=== PATIENT | male | born 1955 | race Caucasian/White ===

== ENCOUNTER 2017-10-08 16:40 | Emergency (ER) | payer OTHER ==
[2017-10-08 17:34] LABS: KETONE, URINE AUTO RFX NEGATIVE (NEGATIVE); LEUKOCYTE ESTERASE UR AUTO RFX NEGATIVE (NEGATIVE); NITRITE, URINE AUTO RFX NEGATIVE (NEGATIVE); RBC, URINE AUTO RFX 0 /HPF (0-3); SPECIFIC GRAVITY UR AUTO RFX 1.001 (1.002-1.035); SQUAM EPITHELIAL CELL UR AURFX 0 /HPF (0-6); WBC, URINE AUTO RFX 0 /HPF (0-3)
[2017-10-08] MEDS: ONDANSETRON 4MG/2ML VIAL (J2405) IV (20:55)
[2017-10-08] MEDS: KETOROLAC 30 MG/ML VIAL (J1885) IV (20:56)
[2017-10-08 21:04] LABS: BASO # 0.1 10^3/uL (0.0-0.2); BASO % 0.7 % (0.0-1.0); EOS # 0.2 10^3/uL (0.0-0.50); EOS % 1.7 % (0.0-3.0); HEMATOCRIT 45.7 % (42.0-52.0); HEMOGLOBIN 15.4 g/dl (14.0-18.0); IMMATURE GRANULOCYTE % 0.4 % (0-0); LYMPH # 2.3 10^3/uL (1.5-4.5); LYMPH % 25.4 % (24.0-44.0); MEAN CORPUSCULAR HEMOGLOBIN 30.6 pg (27.0-33.0); MEAN CORPUSCULAR HGB CONC 33.7 g/dl (32.0-36.5); MEAN CORPUSCULAR VOLUME 90.7 fl (80.0-96.0); MONO # 0.6 10^3/uL (0.0-0.8); MONO % 7.1 % (0.0-5.0); NEUTROPHILS # 5.8 10^3/uL (1.8-7.7); NEUTROPHILS % 64.7 % (36.0-66.0); PLATELET COUNT, AUTOMATED 386 10^3/uL (150-450); RED BLOOD COUNT 5.04 10^6/uL (4.30-6.10); RED CELL DISTRIBUTION WIDTH 12.3 % (11.5-14.5)
[2017-10-08 21:29] LABS: ALBUMIN 3.7 GM/DL (3.2-5.2); ALBUMIN/GLOBULIN RATIO 0.95 (1.00-1.93); ALKALINE PHOSPHATASE 102 U/L (45-117); ALT/SGPT 36 U/L (12-78); ANION GAP 8 MEQ/L (8-16); AST/SGOT 33 U/L (7-37); BILIRUBIN,TOTAL 0.4 MG/DL (0.2-1.0); BLOOD UREA NITROGEN 9 MG/DL (7-18); CALCIUM LEVEL 8.7 MG/DL (8.8-10.2); CARBON DIOXIDE LEVEL 27 MEQ/L (21-32); CHLORIDE LEVEL 103 MEQ/L (98-107); CREATININE FOR GFR 0.78 MG/DL (0.70-1.30); GLOMERULAR FILTRATION RATE > 60.0 (>49); GLUCOSE, FASTING 94 MG/DL (70-100); LIPASE 119 U/L (73-393); POTASSIUM SERUM 3.7 MEQ/L (3.5-5.1); SODIUM LEVEL 138 MEQ/L (136-145); TOTAL PROTEIN 7.6 GM/DL (6.4-8.2)
[2017-10-08] MEDS: metroNIDAZOLE (FLAGYL) 500 MG TAB PO (22:21)
[2017-10-08] MEDS: CIPROFLOXACIN 500 MG TAB PO (22:21)
== END 2017-10-08 22:32 | disposition home or self-care (01) ==
LOC: M ED 16:40
DX: K57.20 Diverticulitis of large intestine with perforation and abscess without bleeding (principal); Z98.890 Other specified postprocedural states; Z88.8 Allergy status to other drugs, medicaments and biological substances
CPT/HCPCS: J2405

== ENCOUNTER → 2018-11-26 | Outpatient (CLI) | payer OTHER ==
[~2018-11-26] MED LIST: ACET30TAB PO; CIPR-249 PO; FLAG500T PO; ZOFR4TAB14 PO
[2018-11-26 12:58] LABS: BASO # 0.1 10^3/uL (0.0-0.2); BASO % 0.6 % (0.0-1.0); EOS # 0.2 10^3/uL (0.0-0.50); EOS % 1.9 % (0.0-3.0); HEMATOCRIT 44.8 % (42.0-52.0); HEMOGLOBIN 14.8 g/dl (13.5-17.5); LYMPH # 2.7 10^3/uL (1.5-4.5); LYMPH % 30.9 % (24.0-44.0); MEAN CORPUSCULAR HEMOGLOBIN 30.1 pg (27.0-33.0); MEAN CORPUSCULAR VOLUME 91.1 fl (80.0-96.0); MONO # 0.8 10^3/uL (0.0-0.8); MONO % 8.5 % (0.0-5.0); PLATELET COUNT, AUTOMATED 363 10^3/uL (150-450); RED BLOOD COUNT 4.92 10^6/uL (4.30-6.10); WHITE BLOOD COUNT 8.8 10^3/uL (4.0-10.0)
[2018-11-26 13:18] LABS: ALBUMIN 3.9 GM/DL (3.2-5.2); ALT/SGPT 35 U/L (12-78); BILIRUBIN,TOTAL 0.4 MG/DL (0.2-1.0); BLOOD UREA NITROGEN 11 MG/DL (7-18); CALCIUM LEVEL 8.7 MG/DL (8.8-10.2); CARBON DIOXIDE LEVEL 27 MEQ/L (21-32); CHLORIDE LEVEL 106 MEQ/L (98-107); CHOLESTEROL LEVEL 189 MG/DL (<200); CHOLESTEROL RISK RATIO 5.906 (<5); GLOMERULAR FILTRATION RATE > 60.0 (>49); GLUCOSE, FASTING 95 MG/DL (70-100); HDL CHOLESTEROL 32 MG/DL (>40); LDL CHOLESTEROL 102 MG/DL (<100); NON-HDL-C 157 MG/DL; POTASSIUM SERUM 4.7 MEQ/L (3.5-5.1); SODIUM LEVEL 141 MEQ/L (136-145); TOTAL PROTEIN 6.9 GM/DL (6.4-8.2); TRIGLYCERIDES LEVEL 275 MG/DL (<150)
--- NOTE | 2018-11-26 14:49 | REP ---
Chest x-ray: Two views. History: Shortness of breath. Comparison study: November 05, 2013. Findings: The lungs are symmetrically aerated and free of infiltrate. Pleural angles are sharp. Heart size is normal. There are degenerative changes in the thoracic spine. Pulmonary vasculature is not increased. Impression: No active disease. Electronically Signed by Rey Kovacs MD 11/26/2018 02:41 P
== END ==
LOC: M WUC 09:27
PROVIDERS: ATTEND Nurse Practitioner Family
DX: Z13.220 Encounter for screening for lipoid disorders (principal); R06.02 Shortness of breath

== ENCOUNTER 2019-01-20 13:15 | Emergency (ER) | payer OTHER ==
[~2019-01-20] VITALS: Ht 167.6 cm; Wt 95.5 kg
[~2019-01-20 13:15] MED LIST changes: +ACET-716 PO; -ACET30TAB PO
[2019-01-20] MEDS ORDERED: ECOT81TA5 PO (13:26)
[2019-01-20 14:01] LABS: BASO # 0.1 10^3/uL (0.0-0.2); BASO % 0.6 % (0.0-1.0); EOS % 0.4 % (0.0-3.0); HEMATOCRIT 45.9 % (42.0-52.0); HEMOGLOBIN 15.7 g/dl (13.5-17.5); LYMPH % 17.5 % (24.0-44.0); MEAN CORPUSCULAR HGB CONC 34.2 g/dl (32.0-36.5); MEAN CORPUSCULAR VOLUME 90.7 fl (80.0-96.0); MONO # 0.8 10^3/uL (0.0-0.8); MONO % 7.2 % (0.0-5.0); NEUTROPHILS # 8.4 10^3/uL (1.8-7.7); NEUTROPHILS % 73.7 % (36.0-66.0); PLATELET COUNT, AUTOMATED 370 10^3/uL (150-450); RED BLOOD COUNT 5.06 10^6/uL (4.30-6.10); WHITE BLOOD COUNT 11.4 10^3/uL (4.0-10.0)
[2019-01-20 15:04] LABS: ALBUMIN 3.8 GM/DL (3.2-5.2); ALT/SGPT 46 U/L (12-78); BILIRUBIN,DIRECT < 0.1 MG/DL (0.0-0.2); BILIRUBIN,TOTAL 0.4 MG/DL (0.2-1.0); BLOOD UREA NITROGEN 14 MG/DL (7-18); CALCIUM LEVEL 8.9 MG/DL (8.8-10.2); CARBON DIOXIDE LEVEL 27 MEQ/L (21-32); CHLORIDE LEVEL 105 MEQ/L (98-107); CREATININE FOR GFR 0.94 MG/DL (0.70-1.30); GLOMERULAR FILTRATION RATE > 60.0 (>49); GLUCOSE, FASTING 104 MG/DL (70-100); LIPASE 155 U/L (73-393); POTASSIUM SERUM 4.2 MEQ/L (3.5-5.1); SODIUM LEVEL 138 MEQ/L (136-145); TOTAL PROTEIN 8.1 GM/DL (6.4-8.2)
[2019-01-20] MEDS ORDERED: KETOROLAC 30 MG/ML VIAL (J1885) IV ONE (16:45)
[2019-01-20] MEDS ORDERED: NS 1,000 ML IV ONE (16:45)
[2019-01-20] MEDS ORDERED: methylPREDNISolone INJ 40 MG/1 ML VIAL (J2920) IV ONE (17:15)
[2019-01-20] MEDS ORDERED: FAMOTIDINE INJ 20MG/2ML VIAL (S0028) IVP ONE (17:15)
[2019-01-20] MEDS ORDERED: diphenhydrAMINE INJ 50MG/ML VIAL (J1200) IV ONE (17:15)
[2019-01-20] MEDS ORDERED: methylPREDNISolone INJ 125 MG/2 ML VIAL (J2930) IV ONE (17:30)
[2019-01-20] MEDS ORDERED: ISOVUE-370 76% 100ML VIAL (Q9967) As Ordered ONE (18:11)
[2019-01-20 18:45] VITALS: BP 173/93
--- NOTE | 2019-01-20 19:52 | REPVR ---
EXAM: CT Abdomen and Pelvis With Contrast EXAM DATE/TIME: 01/20/2019 4:41 PM CLINICAL HISTORY: 63 years old, male; Abdominal pain; Other: Lower; Additional info: Low abd pain, R/O diverticulitis, appendicitis, hernia TECHNIQUE: Imaging protocol: Axial computed tomography images of the abdomen and pelvis with intravenous contrast. Coronal and sagittal reformatted images were created and reviewed. Radiation optimization: All CT scans at this facility use at least one of these dose optimization techniques: automated exposure control; mA and/or kV adjustment per patient size (includes targeted exams where dose is matched to clinical indication); or iterative reconstruction. Contrast material: ISOVUE 370; Contrast volume: 100 ml; Contrast route: IV; COMPARISON: CT ABD PELVIS W/O CONTRAST 10/08/2017 8:56 PM FINDINGS: Lungs: There is a 7 mm nodule at the left lung base not seen on the examination of 2018. On the examination of 2018 the area in question is not included. Therefore it would be prudent to have a followup CT scan in 6 months for reevaluation of this, there document stability and exclude any possibility of pathologic nodule. Heart: The heart is normal in size. There is no evidence of pericardial effusion. ABDOMEN: Liver: There is a 1 CM low density lesion at the junction of the right and left lobe of the liver. This can faintly be identified on the previous examination. There is an enhancing density at the lower aspect of the left lobe of the liver and also at the lower aspect of the right lobe of the liver probably benign lesions. However a followup exam to include the liver in 6 months would also be important to document stability and to exclude any possibility pathology. There is moderate fatty infiltration of the liver. Gallbladder and bile ducts: There is a 2.2 CM calcified gallstone at the neck of the gallbladder. Pancreas: Normal sized pancreas. Spleen: Normal spleen. Adrenals: Normal adrenal glands. Kidneys and ureters: There is enhancement of both kidneys. There is a 1 cm calcified stone lower pole left kidney/nonobstructive. Stomach and bowel: There are multiple diverticula of the left colon. There is mild inflammation along the margins of the lower left colon and trace fluid in left paracolic space, all consistent with changes of diverticulitis. There is prominence of loops of small bowel left abdomen with air-fluid levels probably secondary to mild ileus. Appendix: Normal-appearing appendix. PELVIS: Bladder: Normal appearing urinary bladder. Reproductive: Normal size prostate. ABDOMEN and PELVIS: Intraperitoneal space: There is no evidence of pneumoperitoneum. Bones/joints: There is a total left hip prosthesis. Soft tissues: There is no evidence of internal hernia. Vasculature: There is opacification of the aorta. Lymph nodes: There is no evidence of lymphadenopathy. IMPRESSION: 1. There are multiple diverticula left colon with inflammation along the lower aspect of the left colon consistent with mild changes of diverticulitis. Mild dilatation of loops of small bowel probably mild localized ileus. 2. Lesions of the liver, one low density and the other 2 enhancing lesions probably benign. However to exclude any possibility of pathologic lesions recommend followup CT with contrast in 6 months. 3. 7 mm nodular density left lung base. To exclude any possibility of this being a pathologic lesion recommend followup CT scan of the chest in 6 months for reevaluation to document stability. 4. 2.2 CM gallstone. Electronically signed by: Kushal Mistry On 01/20/2019 19:52:18 PM
[2019-01-20] MEDS ORDERED: FLAG500T PO (20:26)
[2019-01-20] MEDS ORDERED: CIPR-249 PO (20:26)
[2019-01-20] MEDS ORDERED: CIPROFLOXACIN 500 MG TAB PO ONE (20:30)
[2019-01-20] MEDS ORDERED: metroNIDAZOLE (FLAGYL) 500 MG TAB PO ONE (20:30)
--- NOTE | 2019-01-21 14:58 | ED PDOC ---
Post-Departure Follow-Up dr bain faxed formal report of ct abd/p for fu Tiffany Nath MD January 21, 2019 14:58
== END 2019-01-20 20:40 | disposition home or self-care (01) ==
LOC: M ED 13:15
DX: K57.32 Diverticulitis of large intestine without perforation or abscess without bleeding (principal); K80.50 Calculus of bile duct without cholangitis or cholecystitis without obstruction; R91.1 Solitary pulmonary nodule; K76.89 Other specified diseases of liver; G89.29 Other chronic pain; J20.9 Acute bronchitis, unspecified; Z87.442 Personal history of urinary calculi; Z72.0 Tobacco use; Z79.82 Long term (current) use of aspirin; Z91.89 Other specified personal risk factors, not elsewhere classified
CPT/HCPCS: 74177; 80048; 80076; 81001; 83690; 85025; 96361; 96374; 96375; 99284; J1200; J1885; J2930; Q9967

== ENCOUNTER 2020-03-17 10:21 | Emergency (ER) | payer OTHER, SELFPAY ==
[~2020-03-17] VITALS: Ht 167.6 cm; Wt 98.4 kg
[~2020-03-17 10:21] MED LIST changes: +ECOT81TA5 PO
[2020-03-17] MEDS ORDERED: IBUP200C25 PO (10:26)
[2020-03-17] MEDS ORDERED: KETOROLAC TROMETHAMINE 10 MG TAB PO ONE (11:45)
[2020-03-17 12:00] LABS: BASO # 0.1 10^3/uL (0.0-0.2); BASO % 0.7 % (0.0-1.0); EOS # 0.1 10^3/uL (0.0-0.5); EOS % 0.5 % (0.0-3.0); HEMATOCRIT 45.6 % (42.0-52.0); HEMOGLOBIN 15.3 g/dl (13.5-17.5); LYMPH # 1.6 10^3/uL (1.5-5.0); LYMPH % 11.9 % (24.0-44.0); MEAN CORPUSCULAR HEMOGLOBIN 30.8 pg (27.0-33.0); MEAN CORPUSCULAR HGB CONC 33.6 g/dl (32.0-36.5); MEAN CORPUSCULAR VOLUME 91.8 fl (80.0-96.0); MONO # 1.1 10^3/uL (0.0-0.8); MONO % 7.8 % (0.0-5.0); NEUTROPHILS # 10.8 10^3/uL (1.5-8.5); NEUTROPHILS % 78.6 % (36.0-66.0); PLATELET COUNT, AUTOMATED 324 10^3/uL (150-450); RED BLOOD COUNT 4.97 10^6/uL (4.30-6.10); WHITE BLOOD COUNT 13.7 10^3/uL (4.0-10.0)
[2020-03-17] MEDS ORDERED: CIPR-249 PO (12:24)
[2020-03-17] MEDS ORDERED: FLOM0.4C39 PO (12:24)
[2020-03-17] MEDS ORDERED: KETO10TAB PO (12:24)
[2020-03-17 12:45] VITALS: BP 154/89
--- NOTE | 2020-03-17 14:34 | REP ---
REASON FOR EXAM: Right flank pain, hematuria. The latest prior for comparison 01/20/2019, a contrast enhanced exam. The latest prior non-contrast enhanced examination 10/08/2017. There is no change in the lung bases. There is a left lower lobe nodule, which is stable. There are no pleural or pericardial effusions. Limited evaluation of the solid intra-abdominal organs shows diffuse low density throughout the hepatic parenchyma. Note is again made of a low density lesion in the lateral segment of the left lobe of the liver better seen on the contrast enhanced examination of 01/20/2019. There is cholelithiasis, status quo. There is a 5 mm ureterolith seen in the distal ureter. This is causing mild right-sided hydronephrosis and perinephric edema. There are no other right-sided collecting system calcifications. There is a left nephrolith unchanged. The abdominal aorta and para-aortic regions are unchanged. The bowel loops and their mesenteries are unchanged. There is no free fluid or free air in the abdomen or pelvis. There is no significant change in the osseous structures. IMPRESSION: 1. Distal right ureterolith and resultant findings as described above. 2. Cholelithiasis. 3. Fatty infiltration of the liver. 4. Descending colon and sigmoid colon diverticulosis status quo. Electronically Signed by Nirmal Klein DO 03/17/2020 04:09 P
== END 2020-03-17 12:54 | disposition home or self-care (01) ==
LOC: M ED 10:21
DX: N20.1 Calculus of ureter (principal); N39.0 Urinary tract infection, site not specified; K76.0 Fatty (change of) liver, not elsewhere classified; F17.200 Nicotine dependence, unspecified, uncomplicated; Z79.82 Long term (current) use of aspirin; Z88.8 Allergy status to other drugs, medicaments and biological substances

== ENCOUNTER 2020-05-15 15:08 | Emergency (ER) | payer MEDICARE, SELFPAY ==
[~2020-05-15] VITALS: Ht 170.2 cm; Wt 95.1 kg
[~2020-05-15 15:08] MED LIST changes: +FLOM0.4C39 PO; +IBUP200C25 PO; +KETO10TAB PO
[2020-05-15] MEDS ORDERED: COMBIVENT RESPIMAT 100-20MCG INHALER 4GM INH STA (15:28)
[2020-05-15] MEDS ORDERED: ACETAMINOPHEN 325 MG TAB PO ONE (15:30)
--- NOTE | 2020-05-15 16:10 | REPVR ---
PROCEDURE INFORMATION: Exam: XR Chest, 1 View Exam date and time: 05/15/2020 3:42 PM Age: 64 years old Clinical indication: Cough and dyspnea; Additional info: Dyspnea/cough TECHNIQUE: Imaging protocol: XR of the chest Views: 1 view. COMPARISON: [place] CHEST 2 VIEW 11/26/2018 9:37 AM FINDINGS: Lungs: No acute cardiopulmonary disease. No evidence of acute pneumonia. Bilateral pulmonary hyperinflation, consistent with underlying COPD. Pleural space: Unremarkable. No pleural effusion. No pneumothorax. Heart/Mediastinum: The heart size is normal. Bones/joints: Mild levoscoliosis of the upper thoracic spine with chronic degenerative vertebral body endplate osteophytic disease is seen in the mid to lower thoracic spine. IMPRESSION: 1. No acute cardiopulmonary disease. No evidence of acute pneumonia. 2. Bilateral pulmonary hyperinflation, consistent with underlying COPD. 3. Mild levoscoliosis of the upper thoracic spine with chronic degenerative vertebral body endplate osteophytic disease is seen in the mid to lower thoracic spine. Electronically signed by: Delfino Baum On 05/15/2020 16:10:42 PM
[2020-05-15 16:12] LABS: VENOUS BASE EXCESS -3.2 (-2.0-2.0); VENOUS HCO3 21.2 MEQ/L (23.0-27.0); VENOUS O2 SATURATION 85.5 % (60.0-80.0); VENOUS PARTIAL PRESSURE CO2 36.2 mmHg (38.0-50.0); VENOUS PARTIAL PRESSURE O2 47.4 mmHg (30.0-50.0); VENOUS PH 7.385 UNITS (7.330-7.430); VENOUS STANDARD HCO3 21.5 MEQ/L; VENOUS TOTAL CO2 22.3 MEQ/L (24.0-28.0)
[2020-05-15 16:16] LABS: BASO # 0.1 10^3/uL (0.0-0.2); BASO % 0.5 % (0.0-1.0); EOS % 0.1 % (0.0-3.0); HEMATOCRIT 43.7 % (42.0-52.0); HEMOGLOBIN 14.4 g/dl (13.5-17.5); LYMPH # 1.2 10^3/uL (1.5-5.0); LYMPH % 8.2 % (24.0-44.0); MEAN CORPUSCULAR HEMOGLOBIN 30.4 pg (27.0-33.0); MEAN CORPUSCULAR VOLUME 92.2 fl (80.0-96.0); MONO % 6.8 % (0.0-5.0); NEUTROPHILS # 12.5 10^3/uL (1.5-8.5); NEUTROPHILS % 83.9 % (36.0-66.0); PLATELET COUNT, AUTOMATED 299 10^3/uL (150-450); RED BLOOD COUNT 4.74 10^6/uL (4.30-6.10)
[2020-05-15 16:26] LABS: INR 1.02; PROTHROMBIN TIME 13.6 SECONDS (11.8-14.0)
[2020-05-15 16:50] LABS: ALBUMIN 3.6 GM/DL (3.2-5.2); ALT/SGPT 30 U/L (12-78); BILIRUBIN,DIRECT 0.2 MG/DL (0.0-0.2); BILIRUBIN,TOTAL 0.8 MG/DL (0.2-1.0); BLOOD UREA NITROGEN 14 MG/DL (7-18); CALCIUM LEVEL 8.7 MG/DL (8.8-10.2); CARBON DIOXIDE LEVEL 25 MEQ/L (21-32); CHLORIDE LEVEL 106 MEQ/L (98-107); CK-MB VALUE MASS 3.3 NG/ML (<3.6); CPK CREATINE PHOSPHOKINASE 396 U/L (39-308); CREATININE FOR GFR 0.81 MG/DL (0.70-1.30); GLOMERULAR FILTRATION RATE > 60.0 (>49); GLUCOSE, FASTING 109 MG/DL (70-100); MB/CK RELATIVE INDEX 0.83 (< OR =4); NT-PRO BNP 340 PG/ML (<125); POTASSIUM SERUM 3.8 MEQ/L (3.5-5.1); SODIUM LEVEL 136 MEQ/L (136-145); TOTAL PROTEIN 7.3 GM/DL (6.4-8.2); TROPONIN I < 0.02 NG/ML (< 0.10)
[2020-05-15] MEDS ORDERED: PROV108A INH (18:10)
[2020-05-15] MEDS ORDERED: DOXY100C37 PO (18:11)
[2020-05-15] MEDS ORDERED: PRED20TA PO (18:11)
[2020-05-15 18:15] VITALS: BP 100/58
--- NOTE | 2020-05-15 19:01 | REPVR ---
PROCEDURE INFORMATION: Exam: CT Chest Without Contrast Exam date and time: 05/15/2020 6:03 PM Age: 64 years old Clinical indication: Shortness of breath; Additional info: SOB TECHNIQUE: Imaging protocol: Computed tomography of the chest without contrast. 3D rendering (Not supervised by radiologist): MIP and/or 3D reconstructed images were created by the technologist. Radiation optimization: All CT scans at this facility use at least one of these dose optimization techniques: automated exposure control; mA and/or kV adjustment per patient size (includes targeted exams where dose is matched to clinical indication); or iterative reconstruction. COMPARISON: CR PORTABLE CHEST X-RAY 05/15/2020 3:39 PM FINDINGS: Lungs: Both lungs are slightly hyperinflated consistent with underlying COPD. Innumerable tiny nodular intrapulmonary densities are seen in both lungs especially in the right upper lobe on image 43 of series 201 and in the left upper lobe on image 54 of series 201. These could represent small airways infectious disease. There are small solid intrapulmonary nodules present in the posterolateral left lower lobe on image 74 of series 201 measuring 7.7 mm in diameter and in the more posterior left lower lobe on image 63 of series 201 measuring 4.9 mm. In addition there is a 1.8 x 1.8 cm subsolid ground-glass nodule in the posterolateral left lower lobe on images 67 and 68 of series 201. Recommend CT at 6-12 months to confirm persistence of the nodule, then repeat CT at 3 and at 5 years. Pleural space: Unremarkable. No pneumothorax. No pleural effusion. Heart: The heart size is normal. Moderate coronary artery calcification is present, however. Aorta: Unremarkable. No aortic aneurysm. Lymph nodes: Unremarkable. No enlarged lymph nodes. Liver: Diffuse fatty infiltration of the liver is present. There is a 1.6 cm diameter hypodense mass in the anterior left lobe of the liver on image 91 of series 202. This has benign features with well-defined sharp and internal homogeneous low attenuation density of less than 20 Hounsfield units and is likely a small simple cyst or hemangioma. Gallbladder and bile ducts: A large gallstone is present in the neck of the gallbladder. No CT evidence of acute cholecystitis. The portions of the biliary ducts visualized appear normal in size. Bones/joints: Multiple levels of chronic degenerative anterior osteophytic spurring and diminished disc height is seen in the mid to lower thoracic spine. Soft tissues: Unremarkable. IMPRESSION: 1. Both lungs are slightly hyperinflated consistent with underlying COPD. Innumerable tiny nodular intrapulmonary densities are seen in both lungs especially in the right upper lobe on image 43 of series 201 and in the left upper lobe on image 54 of series 201. These could represent small airways infectious disease. There are small solid intrapulmonary nodules present in the posterolateral left lower lobe on image 74 of series 201 measuring 7.7 mm in diameter and in the more posterior left lower lobe on image 63 of series 201 measuring 4.9 mm. For patients at low risk (minimal or absent history of smoking and of other known risk factors), recommend CT at 3-6 months, then consider CT at 18-24 months. For patients at high risk (history of smoking or of other known risk factors), recommend CT at 3-6 months, then CT at 18-24 months. (Reference: Jonohoshady H, et al. Guidelines for Management of Incidental Pulmonary Nodules Detected on CT Images: From the Fleischner Society Radiology. Radiology, 2017). 2. In addition there is a 1.8 x 1.8 cm subsolid ground-glass nodule in the posterolateral left lower lobe on images 67 and 68 of series 201. Recommend CT at 6-12 months to confirm persistence of the nodule, then repeat CT at 3 and at 5 years. (Reference: SunnyMahoshady H, et al. Guidelines for Management of Incidental Pulmonary Nodules Detected on CT Images: From the Fleischner Society Radiology. Radiology, 2017). 3. The heart size is normal. Moderate coronary artery calcification is present, however. 4. Multiple levels of chronic degenerative anterior osteophytic spurring and diminished disc height is seen in the mid to lower thoracic spine. 5. Diffuse fatty infiltration of the liver is present. There is a 1.6 cm diameter hypodense mass in the anterior left lobe of the liver on image 91 of series 202. This has benign features with well-defined sharp and internal homogeneous low attenuation density of less than 20 Hounsfield units and is likely a small simple cyst or hemangioma. No further follow-up is recommended. Reference: Managing Incidental Findings on Abdominal CT: White Paper of the ACR Incidental Findings Committee Fernando Ambrocio MD, et al. JACR, June 2010. 6. A large gallstone is present in the neck of the gallbladder. No CT evidence of acute cholecystitis. The portions of the biliary ducts visualized appear normal in size. Electronically signed by: Delfino Baum On 05/15/2020 19:01:32 PM
--- NOTE | 2020-05-17 12:46 | ED PDOC ---
Post-Departure Follow-Up dr bain faxed formal report of ct chest for fu Tiffany Nath MD May 17, 2020 12:46
--- NOTE | 2020-05-21 11:15 | ECGEPIP ---
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
== END 2020-05-15 19:20 | disposition home or self-care (01) ==
LOC: M ED 15:08
DX: J40 Bronchitis, not specified as acute or chronic (principal); J44.9 Chronic obstructive pulmonary disease, unspecified; Z79.899 Other long term (current) drug therapy; Z88.8 Allergy status to other drugs, medicaments and biological substances; F17.210 Nicotine dependence, cigarettes, uncomplicated

== ENCOUNTER → 2020-09-11 | Outpatient (CLI) | payer MEDICARE ==
[~2020-09-11] MED LIST changes: +DOXY100C37 PO; +PRED20TA PO; +PROV108A INH
== END ==
LOC: M LABSMTC 10:50
PROVIDERS: ATTEND Anesthesiology
DX: Z01.812 Encounter for preprocedural laboratory examination (principal); Z20.822 Contact with and (suspected) exposure to COVID-19

== ENCOUNTER 2020-09-16 09:40 | Day surgery (SDC) | payer MEDICARE ==
[~2020-09-16] VITALS: Ht 170.2 cm; Wt 95.3 kg
[~2020-09-16 09:40] MED LIST changes: +NS 1,000 ML IV ONE
--- OUTSIDE RECORDS SUMMARY | 2020-09-16 09:48 | CCD | Continuity of Care Document ---
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 Name Role Phone Colton Guillen JR, MD Unavailable Colton Guillen JR, MD Unavailable Problems Description No Information Available Social History Type Date Description Comments Sex Unknown ETOH Use Denies alcohol use Tobacco Use Start: Unknown Patient is a current smoker, smo kes every day Exercise Type/Frequency Exercises sporadically Allergies, Adverse Reactions, Alerts Description No Information Available Medications Description No Active Medications Immunizations CPT Code Status Date Vaccine Lot # [id number] Given 07/22/2020 Pneumovax 23 [id number] Given 07/22/2020 Influenza Vaccin e Quadrivalent Preser/Antibiotic Free Im Use [id number] Vital Signs Date Vital Result Comment 07/22/2020 8:55am BP Systolic 120 mmHg BP Diastolic 78 mmHg Heart Rate 80 /min Height 67 inches 5'7" Weight 209.00 lb O2 % BldC Oximetry 94 % RM Air BMI (Body Mass Index) 32.7 kg/m2 Results Test Acquired Date Facility Test Result H/L Range Note Complete Blood Count 07/22/2020 [facility] Steel Division Supervisor: [place] [address] [phone] WBC 7.1 x10*3/UL 4.1 - 10.9 RBC 5.44 x10*6/UL 4.20 - 6.30 Hemoglobin 16.3 g/dL 12.0 - 18.0 Hematocrit 47.9 % 37.0 - 51.0 MCV 88.0 fL 80.0 - 97.0 MCH 30.0 pg 26.0 - 32.0 MCHC 34.1 g/dL 31.0 - 38.0 RDW 12.9 % 11.6 - 13.7 PLT 359 x10*3/UL 140 - 440 MPV 8.1 FL 7.8 - 11.0 Lymph % 21.8 % 10.0 - 58.5 Mid % 5.1 % 1.7 - 9.3 Neut % 73.1 % 37.0 - 92.0 Lymph # 1.5 x10*3/UL 0.6 - 4.1 Mid # 0.4 x10*3/UL 0.1 - 0.6 Neut # 5.2 x10*3/UL 2.0 - 7.8 Comprehensive Chem Profile 07/22/2020 [facility] [employer] Division Supervisor: Dr [place] [address] [phone] Glucose 103 mg/dL High 74 - 99 1 BUN 14 mg/dL 7 - 18 Creatinine 0.9 mg/dL 0.6 - 1.3 Sodium 143 mEq/L 136 - 145 Potassium 4.4 mEq/L 3.5 - 5.1 Chloride 104 mEq/L 98 - 107 Carbon Dioxide 28 mEq/L 21 - 32 Calcium 9.3 mg/dL 8.5 - 10.1 Alk. Phosphatase 92 mg/dL 46 - 116 Total Bilirubin 0.5 mg/dL 0.2 - 1.0 Ast (Sgot) 32 U/L 15 - 37 Alt (SGPT) 42 U/L 12 - 78 Albumin 4.2 g/dL 3.4 - 5.0 Total Protein 7.4 g/dL 6.4 - 8.2 A/G Ratio 1.31 CALC 1.00 - 1.90 GFR >= 60 mL/min >60 GFR >= 60 mL/min >60 2 Lipid Profile 07/22/2020 [facility] [employer] Division Supervisor: [place] [address] [phone] Cholesterol 209 mg/dL High 131 - 200 Triglycerides 178 mg/dL High 30 - 150 HDL Cholesterol 37 mg/dL 35 - 60 LDL (Calculated) 136 CALC 50 - 159 Laboratory test finding 07/22/2020 [facility] [employer] Division Supervisor: Dr Col[place] [address] [phone] PSA 1.30 ng/mL <4.00 3 1 100-125 mg/dL PRE-DIABET ES/FASTING >126 mg/dL DIABETES/FASTING 2 CHRONIC KIDNEY DISEASE STAGI NG PER NKF STAGE I & II GFR >= 60 NORMAL TO MILDLY DECREASED STAGE III GFR 30-59 MODERATELY DECREASED STAGE IV GFR 15-29 SEVERELY DECREASED STAGE V GFR <15 VERY LITTLE GFR LEFT ESRD GFR <15 ON FLOORING MECHANIC 3 This assay was performed on the [employer] EXL using the B- Galactosidase/CPRG methodology and should not be compared interchangeably with other methods. The PSA should not be used alone as a screening test for the presence or absence of malignant disease. Procedures Description No Information Available Medical Devices Description No Information Available Encounters Description No Information Available Assessments Description No Information Available Plan of Treatment Future Appointment(s):* 01/19/2021 8:40 am - LULÚ Dowling JR at [facility] * 09/07/2020 1:00 pm - LULÚ Dowling JR at [facility] 07/22/2020 - LULÚ Dowling JR* All * New Medication:* No Active Medications - Functional Status Description No Information Available Mental Status Description No Information Available Referrals Description No Information Available
--- OUTSIDE RECORDS SUMMARY | 2020-09-16 09:48 | CCD | Continuity of Care Document ---
Author Author Sam STEPHENS PA Organization Unknown Address [address] [address] Phone [phone] Care Team Providers Care Last Cleaner Name Role Phone Colton Guillen JR, MD Unavailable Colton Guillen JR, MD Unavailable Problems Description No Information Available Social History Type Date Description Comments Sex Unknown ETOH Use Denies alcohol use Tobacco Use Start: Unknown Patient is a current smoker, smo kes every day Exercise Type/Frequency Exercises sporadically Allergies, Adverse Reactions, Alerts Description No Information Available Medications Active Medications SIG Qnty Indications Ordering Provide r Date Ventolin HFA 108(90Base) mcg/Act A erosol 2 puffs four times a day as needed 24gm LULÚ Shah JR 09/10/2020 History Medications No Active Medications Unknown - 09/10/2020 Medications Administered in Office Medication SIG Qnty Indications Ordering Provider Date Administration Of Flu Vaccine Inj ection LULÚ Dowling JR 020 Immunizations CPT Code Status Date Vaccine Lot # [id number] Given 07/22/2020 Pneumovax 23 [id number] Given 07/22/2020 Influenza Vaccin e Quadrivalent Preser/Antibiotic Free Im Use [id number] Vital Signs Date Vital Result Comment 09/10/2020 1:05pm BP Systolic 142 mmHg BP Diastolic 82 mmHg Heart Rate 84 /min Height 67 inches 5'7" Weight 215.00 lb O2 % BldC Oximetry 94 % BMI (Body Mass Index) 33.7 kg/m2 07/22/2020 8:55am BP Systolic 120 mmHg BP Diastolic 78 mmHg Heart Rate 80 /min Height 67 inches 5'7" Weight 209.00 lb O2 % BldC Oximetry 94 % RM Air BMI (Body Mass Index) 32.7 kg/m2 Results Test Acquired Date Facility Test Result H/L Range Note Complete Blood Count 07/22/2020 [facility] Field Specialist: [place] [address] [phone] WBC 7.1 x10*3/UL 4.1 - 10.9 RBC [...] 2.0 - 7.8 Comprehensive Chem Profile 07/22/2020 [facility] Field Specialist: [place] [address] [phone] Glucose 103 mg/dL High 74 - 99 [...] 60 mL/min >60 2 Lipid Profile 07/22/2020 [facility] Field Specialist: Dr Colton [place] [id number] [phone] Cholesterol 209 mg/dL High 131 - 200 Triglycerides 178 mg/dL High 30 - 150 HDL Cholesterol 37 mg/dL 35 - 60 LDL (Calculated) 136 CALC 50 - 159 Laboratory test finding 07/22/2020 [facility] Field Specialist: Dr Colton [place]ill[place], [place] [id number] [phone] PSA 1.30 ng/mL <4.00 3 1 100-125 mg/dL PRE-DIABET ES/FASTING >126 mg/dL DIABETES/FASTING 2 CHRONIC KIDNEY DISEASE STAGI NG PER NKF STAGE I & II GFR >= 60 NORMAL TO MILDLY DECREASED STAGE III GFR 30-59 MODERATELY DECREASED STAGE IV GFR 15-29 SEVERELY DECREASED STAGE V GFR <15 VERY LITTLE GFR LEFT ESRD GFR <15 ON SERVICE OBSERVER CHIEF 3 This assay was performed on the waliL using the B- Galactosidase/CPRG methodology and should not be compared interchangeably with other methods. The PSA should not be used alone as a screening test for the presence or absence of malignant disease. Procedures Date Code Description Status 07/22/2020 40754 EKG/Interpretation & Report Comp leted Medical Devices Description No Information Available Encounters Type Date Location Provider Dx Diagnosis Office Visit 07/22/2020 9:00a [facility] LULÚ Faith JR Z00.00 Encntr for general adult med ical exam w/o abnormal findings J44.9 Chronic obstructive pulmonar y disease, unspecified M15.9 Polyosteoarthritis, unspecif ied Z96.642 Presence of left artificial hip joint Z13.6 Encounter for screening for cardiovascular disorders Z12.5 Encounter for screening for malignant neoplasm of prostate Z23 Encounter for immunization Z13.89 Encounter for screening for other disorder Assessments Date Code Description Provider 07/22/2020 Z00.00 Encounter for genera l adult medical examination without abnormal findings LULÚ Dowling JR 07/22/2020 J44.9 Chronic obstructive pulmonary di sease, unspecified LULÚ Dowling JR 07/22/2020 M15.9 Polyosteoarthritis, unspecified LULÚ Dowling JR 07/22/2020 Z96.642 Presence of left artificial hip joint LULÚ Dowling JR 07/22/2020 Z13.6 Encounter for screening for card iovascular disorders LULÚ Dowling JR 07/22/2020 Z12.5 Encounter for screening for hunter gnant neoplasm of prostate LULÚ Dowling JR 07/22/2020 Z23 Encounter for immunization Kurtis LULÚ Lorenzana JR 07/22/2020 Z13.89 Encounter for screening for othe r disorder LULÚ Dowling JR Plan of Treatment Future Appointment(s):* 01/19/2021 8:40 am - LULÚ Dowling JR at [facility] 09/10/2020 - LULÚ Dowling JR* All * New Medication:* Ventolin HFA 108(90 Base) mcg/Act - 2 puffs four times a day as needed Functional Status Description No Information Available Mental Status Description No Information Available Referrals Refer to Reason for Referral Status Appt Date Francesco Chang JR, MD CONSULT FOR SCREENING COLONOSCOPY Patient Notified 08/17/2020 [facility] General Surgery [address] [facility] [address] [phone] [facility] PROPOSAL MANAGER CONSULT FOR LT HIP AND BILAT K NEE PAIN Sent [address] [place] [address] [phone]
--- OUTSIDE RECORDS SUMMARY | 2020-09-16 09:48 | CCD | Continuity of Care Document ---
Author Author Sam KELLY BLOCK PAVER Organization Unknown Address [address] [place] [address] Phone [phone] Care Team Providers Care Crystalizer Tender Name Role Phone [facility] [phone] Problems Description No Information Available Social History Type Date Description Comments Sex Unknown ETOH Use Denies alcohol use Recreational Drug Use Denies Drug Use Tobacco Use Start: Unknown Patient is a current smoker, smo kes every day 1 ppd for 44 years Allergies, Adverse Reactions, Alerts Active Allergies Reaction Severity Comments Date Radioactive Iodine anaphylaxis 0 Medications Active Medications SIG Qnty Indications Ordering Provide r Date Ibuprofen 200mg Capsules as n eeded Unknown Immunizations Description No Information Available Vital Signs Date Vital Result Comment 08/17/2020 1:09pm BP Systolic 162 mmHg BP Diastolic 74 mmHg Height 67 inches 5'7" Weight 213.00 lb BMI (Body Mass Index) 33.4 kg/m2 [place] Body Weight 148 lb Weight 96.617 kg BSA (Body Surface Area) 2.08 m2 Results Description No Information Available Procedures Description No Information Available Medical Devices Description No Information Available Encounters Description No Information Available Assessments Description No Information Available Plan of Treatment No Information Available Functional Status Description No Information Available Mental Status Description No Information Available Referrals Refer to Reason for Referral Status Appt Date Francesco Chang JR, MD COLONOSCOPY Scheduled 0 [address] [facility] [address] [place] [address] [phone]
--- OUTSIDE RECORDS SUMMARY | 2020-09-16 09:49 | CCD | Continuity of Care Document ---
Author Author Sam STEPHENS PA Organization Unknown Address [address] [address] Phone [phone] Care Team Providers Care Ski Maker Name Role Phone Colton Guillen JR, MD [...] CPT Code Status Date Vaccine Lot # [id number] Given 07/22/2020 Pneumovax 23 [id number] Given 07/22/2020 Influenza Vaccin e Quadrivalent Preser/Antibiotic Free Im Use [id number] Vital Signs Date Vital Result Comment 07/22/2020 8:55am BP Systolic 120 mmHg BP Diastolic 78 mmHg Heart Rate 80 /min Height 67 inches 5'7" Weight 209.00 lb O2 % BldC Oximetry 94 % RM Air BMI (Body Mass Index) 32.7 kg/m2 Results Test Acquired Date Facility Test Result H/L Range Note Complete Blood Count 07/22/2020 [facility] Product Development Specialist: [place] [address] [phone] WBC 7.1 x10*3/UL 4.1 - 10.9 RBC [...] 2.0 - 7.8 Comprehensive Chem Profile 07/22/2020 [facility] Product Development Specialist: [place] [address] [phone] Glucose 103 mg/dL High 74 - 99 [...] 60 mL/min >60 2 Lipid Profile 07/22/2020 [facility] Product Development Specialist: [place] [address] [phone] Cholesterol 209 mg/dL High 131 - 200 Triglycerides 178 mg/dL High 30 - 150 HDL Cholesterol 37 mg/dL 35 - 60 LDL (Calculated) 136 CALC 50 - 159 Laboratory test finding 07/22/2020 [facility] Product Development Specialist: [place] [address] [phone] PSA 1.30 ng/mL <4.00 3 1 100-125 mg/dL PRE-DIABET ES/FASTING >126 mg/dL DIABETES/FASTING 2 CHRONIC KIDNEY DISEASE STAGI NG PER NKF STAGE I & II GFR >= 60 NORMAL TO MILDLY DECREASED STAGE III GFR 30-59 MODERATELY DECREASED STAGE IV GFR 15-29 SEVERELY DECREASED STAGE V GFR <15 VERY LITTLE GFR LEFT ESRD GFR <15 ON CERTIFIED MORTICIAN 3 This assay was performed on the Siemens VCV EXL using the B- Galactosidase/CPRG methodology and [...] 8:40 am - LULÚ Dowling JR at [facility] * 09/07/2020 1:00 pm - LULÚ Dowling JR at [facility] 07/22/2020 - LULÚ Dowling JR* All * New Medication:* No Active Medications - Functional Status Description No Information Available Mental Status Description No Information Available Referrals Description No Information Available
--- OUTSIDE RECORDS SUMMARY | 2020-09-16 09:49 | CCD | Continuity of Care Document ---
Author Author Sam STEPHENS PA Organization Unknown Address [address] [address] Phone [phone] Care Team Providers Care Superior Court Judge Name Role Phone Colton Guillen JR, MD [place] Unavailable Colton Guillen JR, MD Unavailable Problems Description No Information Available Social History Type Date Description Comments Sex Unknown ETOH Use Denies alcohol use Tobacco Use Start: Unknown Patient is a current smoker, smo kes every day Allergies, Adverse Reactions, Alerts Description No Information Available Medications Description No Active Medications Immunizations Description No Information Available Vital Signs Date Vital Result Comment 07/22/2020 8:55am BP Systolic 120 mmHg BP Diastolic 78 mmHg Heart Rate 80 /min Height 67 inches 5'7" Weight 209.00 lb O2 % BldC Oximetry 94 % RM Air BMI (Body Mass Index) 32.7 kg/m2 Results Test Acquired Date Facility Test Result H/L Range Note Laboratory test finding 07/22/2020 [facility] Mobile Battery Technician: Dr Colton Guillen [place] [id number] [phone] PSA <pending> Procedures Description No Information Available Medical Devices Description No Information Available Encounters Description No Information Available Assessments Description No Information Available Plan of Treatment 07/22/2020 - LULÚ Dowling JR* All * New Medication:* No Active Medications - Functional Status Description No Information Available Mental Status Description No Information Available Referrals Description No Information Available
--- NOTE | 2020-09-16 11:16 | ROOR ---
Patient Name: Sam Lino Procedure Date: 09/16/2020 10:53 AM Date of : 1955 Age: 65 Room: [facility] Gender: Male Note Status: Finalized Procedure: Colonoscopy Indications: Screening for colorectal malignant neoplasm Providers: Francesco Chang Jr, MD Referring MD: ELY MCBRIDE JR, MD Requesting Provider: Medicines: Propofol per Anesthesia Complications: No immediate complications. Procedure: Pre-Anesthesia Assessment: - Prior to the procedure, a History and Physical was performed, and patient medications and allergies were reviewed. The patient is competent. The risks and benefits of the procedure and the sedation options and risks were discussed with the patient. All questions were answered and informed consent was obtained. Patient identification and proposed procedure were verified by the physician and the nurse in the pre-procedure area and in the procedure room. Mental Status Examination: alert and oriented. Airway Examination: normal oropharyngeal airway and neck mobility. Respiratory Examination: clear to auscultation. CV Examination: normal. ASA Grade Assessment: II - A patient with mild systemic disease. After reviewing the risks and benefits, the patient was deemed in satisfactory condition to undergo the procedure. The anesthesia plan was to use moderate sedation / analgesia (conscious sedation). Immediately prior to administration of medications, the patient was re-assessed for adequacy to receive sedatives. The heart rate, respiratory rate, oxygen saturations, blood pressure, adequacy of pulmonary ventilation, and response to care were monitored throughout the procedure. The physical status of the patient was re-assessed after the procedure. The Colonoscope was introduced through the anus and advanced to the cecum, identified by appendiceal orifice and ileocecal valve. The colonoscopy was performed without difficulty. The patient tolerated the procedure well. The quality of the bowel preparation was adequate. Findings: The rectum, recto-sigmoid colon, descending colon, transverse colon, ascending colon, cecum, appendiceal orifice and ileocecal valve appeared normal. Multiple small and large-mouthed diverticula were found in the sigmoid colon. A small polyp was found in the sigmoid colon. The polyp was removed with a cold snare. Resection and retrieval were complete. Non-bleeding external and internal hemorrhoids were found during endoscopy. The hemorrhoids were Grade II (internal hemorrhoids that prolapse but reduce spontaneously) and Grade III (internal hemorrhoids that prolapse but require manual reduction). Impression: - The rectum, recto-sigmoid colon, descending colon, transverse colon, ascending colon, cecum, appendiceal orifice and ileocecal valve are normal. - Diverticulosis in the sigmoid colon. - One small polyp in the sigmoid colon, removed with a cold snare. Resected and retrieved. - Non-bleeding external and internal hemorrhoids. Recommendation: - Repeat colonoscopy in 5-10 years for surveillance based on pathology results. Procedure Code(s): --- Professional --- 44968, Colonoscopy, flexible; with removal of tumor(s), polyp(s), or other lesion(s) by snare technique Diagnosis Code(s): --- Professional --- Z12.11, Encounter for screening for malignant neoplasm of colon K64.2, Third degree hemorrhoids K63.5, Polyp of colon K57.30, Diverticulosis of large intestine without perforation or abscess without bleeding CPT copyright 2019 [employer]. All rights reserved. The codes documented in this report are preliminary and upon physics and astronomy professor review may be revised to meet current compliance requirements. Francesco Chang MD Francesco Chang Jr, MD 09/16/2020 11:15:57 AM Electronically signed by Francesco Chang Jr, MD Number of Addenda: 0 Note Initiated On: 09/16/2020 10:53 AM Estimated Blood Loss: Estimated blood loss: none.
[2020-09-16 11:35] VITALS: BP 146/72
== END 2020-09-16 11:45 | disposition home or self-care (01) ==
LOC: M OPP 09:40
PROVIDERS: ATTEND Surgery
DX: Z12.11 Encounter for screening for malignant neoplasm of colon (principal); K63.5 Polyp of colon; K57.30 Diverticulosis of large intestine without perforation or abscess without bleeding; K64.2 Third degree hemorrhoids; M19.90 Unspecified osteoarthritis, unspecified site; J44.9 Chronic obstructive pulmonary disease, unspecified; F17.210 Nicotine dependence, cigarettes, uncomplicated; Z96.642 Presence of left artificial hip joint; Z88.3 Allergy status to other anti-infective agents; Z79.82 Long term (current) use of aspirin

== ENCOUNTER → 2021-10-12 | Outpatient (CLI) | payer MEDICARE ==
[~2021-10-12] MED LIST changes: +DOXY-443 PO; -DOXY100C37 PO; -NS 1,000 ML IV ONE
== END ==
LOC: M WUC 15:25
PROVIDERS: ATTEND Physician Assistant
DX: M25.78 Osteophyte, vertebrae (principal); M47.9 Spondylosis, unspecified; R93.89 Abnormal findings on diagnostic imaging of other specified body structures; Z96.9 Presence of functional implant, unspecified; Z98.890 Other specified postprocedural states

== ENCOUNTER → 2021-11-08 | Outpatient (CLI) | payer MEDICARE | LOC: M RAD 09:45 | PROVIDERS: ATTEND Physician Assistant | DX: S70.02XA Contusion of left hip, initial encounter (principal); W18.30XA Fall on same level, unspecified, initial encounter; Y92.009 Unspecified place in unspecified non-institutional (private) residence as the place of occurrence of the external cause | CPT/HCPCS: 78315; A9503 ==

== ENCOUNTER → 2021-11-15 | Outpatient (CLI) | payer MEDICARE | LOC: M PLAIMG 11:06 | PROVIDERS: ATTEND Physician Assistant | DX: M94.262 Chondromalacia, left knee (principal) ==

== ENCOUNTER → 2021-11-24 | Outpatient (CLI) | payer MEDICARE ==
[2021-11-24 08:28] LABS: BASO # 0.1 10^3/uL (0.0-0.2); BASO % 1.2 % (0.0-1.0); EOS # 0.2 10^3/uL (0.0-0.5); EOS % 2.8 % (0.0-3.0); HEMATOCRIT 46.8 % (42.0-52.0); HEMOGLOBIN 15.6 g/dl (13.5-17.5); LYMPH # 2.3 10^3/uL (1.5-5.0); LYMPH % 32.8 % (24.0-44.0); MEAN CORPUSCULAR HGB CONC 33.3 g/dl (32.0-36.5); MONO # 0.5 10^3/uL (0.0-0.8); MONO % 6.8 % (2.0-8.0); NEUTROPHILS # 3.9 10^3/uL (1.5-8.5); NEUTROPHILS % 55.8 % (36.0-66.0); PLATELET COUNT, AUTOMATED 346 10^3/uL (150-450); WHITE BLOOD COUNT 6.9 10^3/uL (4.0-10.0)
[2021-11-24 09:00] LABS: ERYTHROCYTE SEDIMENTATION RATE 15 mm/hr (0-20)
== END ==
LOC: M LAB 07:50
PROVIDERS: ATTEND Orthopaedic Surgery
DX: Z96.642 Presence of left artificial hip joint (principal)

== ENCOUNTER → 2022-01-18 | Outpatient (REF) | payer MEDICARE ==
[2022-01-18 13:31] LABS: PERCENT SATURATION 21.3 % (19.7-50.0)
== END ==
LOC: M LAB REF 12:28
PROVIDERS: ATTEND Internal Medicine
DX: Z01.818 Encounter for other preprocedural examination (principal); D50.9 Iron deficiency anemia, unspecified

== ENCOUNTER 2022-01-23 08:27 | Outpatient (RCR) | payer MEDICARE | END 2022-01-31 | LOC: M PT 08:27 | PROVIDERS: ATTEND Orthopaedic Surgery | DX: Z01.818 Encounter for other preprocedural examination (principal); M25.552 Pain in left hip ==

== ENCOUNTER 2022-02-24 17:00 | Emergency (ER) | payer MEDICARE ==
[~2022-02-24] VITALS: Ht 170.2 cm; Wt 90.0 kg
[2022-02-24] MEDS ORDERED: CYCL-707 (17:11)
[2022-02-24] MEDS ORDERED: OXYC-517 (17:11)
[2022-02-24] MEDS ORDERED: MELO15TA28 (17:11)
[2022-02-25 01:20] VITALS: BP 139/72
[2022-02-25 01:28] LABS: BASO # 0.1 10^3/uL (0.0-0.2); BASO % 0.8 % (0.0-1.0); EOS # 0.3 10^3/uL (0.0-0.5); EOS % 2.8 % (0.0-3.0); HEMATOCRIT 39.3 % (42.0-52.0); HEMOGLOBIN 13.1 g/dl (13.5-17.5); MEAN CORPUSCULAR HEMOGLOBIN 30.7 pg (27.0-33.0); MEAN CORPUSCULAR HGB CONC 33.3 g/dl (32.0-36.5); MONO # 0.8 10^3/uL (0.0-0.8); MONO % 9.1 % (2.0-8.0); NEUTROPHILS # 5.9 10^3/uL (1.5-8.5); NEUTROPHILS % 64.8 % (36.0-66.0); PLATELET COUNT, AUTOMATED 332 10^3/uL (150-450); RED BLOOD COUNT 4.27 10^6/uL (4.30-6.10); WHITE BLOOD COUNT 9.1 10^3/uL (4.0-10.0)
== END 2022-02-25 03:25 | disposition left against medical advice (07) ==
LOC: M ED 17:00
DX: R22.42 Localized swelling, mass and lump, left lower limb (principal); M25.552 Pain in left hip; Z53.20 Procedure and treatment not carried out because of patient's decision for unspecified reasons

== ENCOUNTER 2022-03-30 08:24 | Outpatient (RCR) | payer MEDICARE ==
[~2022-03-30 08:24] MED LIST changes: +CYCL-707; +MELO15TA28; +OXYC-517
== END 2022-04-02 ==
LOC: M PT 08:24
PROVIDERS: ATTEND Physician Assistant Surgical
DX: M25.552 Pain in left hip (principal)

== ENCOUNTER 2023-08-24 13:19 | Emergency (ER) | payer MEDICARE ==
[~2023-08-24] VITALS: Ht 170.2 cm; Wt 80.5 kg
[~2023-08-24 13:19] MED LIST changes: +ALBU6.7H6 INH; -PROV108A INH
[2023-08-24] MEDS ORDERED: NIRM1TAB (13:31)
[2023-08-24 14:08] LABS: HEMATOCRIT 43.4 % (42.0-52.0); HEMOGLOBIN 14.4 g/dl (13.5-17.5); MEAN CORPUSCULAR HEMOGLOBIN 30.1 pg (27.0-33.0); MEAN CORPUSCULAR HGB CONC 33.2 g/dl (32.0-36.5); MEAN CORPUSCULAR VOLUME 90.8 fl (80.0-96.0); PLATELET COUNT, AUTOMATED 334 10^3/uL (150-450); RED BLOOD COUNT 4.78 10^6/uL (4.30-6.10); WHITE BLOOD COUNT 10.8 10^3/uL (4.0-10.0)
[2023-08-24 14:15] VITALS: O2SAT 94
[2023-08-24] MEDS ORDERED: dexAMETHasone 20MG/5ML VIAL IV ONE (14:15)
[2023-08-24 14:25] LABS: ATYPICAL LYMPH 1 % (0-5); LYMPHOCYTES 8 % (16-44); MONOCYTES 9 % (0-5); NEUTROPHILS 75 % (28-66); PLATELET ESTIMATE NORMAL (NORMAL)
[2023-08-24 14:26] LABS: POLYCHROMASIA 1+
[2023-08-24 14:31] LABS: CK-MB VALUE MASS 5.8 NG/ML (<3.6)
[2023-08-24] MEDS: IPRATROPIUM 0.5MG/ALBUTEROL 2.5MG INH SOL UD 3ML (DUONEB) NEB SCH ×2 (14:32→14:33)
[2023-08-24 14:34] LABS: ALBUMIN 3.2 G/DL (3.2-5.2); ALKALINE PHOSPHATASE 92 U/L (46-116); ALT/SGPT 33 U/L (7.0-40); AST/SGOT 32 U/L (<34); BILIRUBIN,DIRECT 0.6 MG/DL (<0.4); BILIRUBIN,TOTAL 1.3 MG/DL (0.3-1.2); BLOOD UREA NITROGEN 13 MG/DL (9-23); CALCIUM LEVEL 8.7 MG/DL (8.3-10.6); CARBON DIOXIDE LEVEL 23 MMOL/L (20-31); CHLORIDE LEVEL 100 MMOL/L (98-107); CPK CREATINE PHOSPHOKINASE 593 U/L (46-171); CREATININE FOR GFR 0.61 MG/DL (0.70-1.30); GLOMERULAR FILTRATION RATE > 60.0 (>49); GLUCOSE, FASTING 107 MG/DL (74-106); MB/CK RELATIVE INDEX 0.97 (< OR =4); POTASSIUM SERUM 3.4 MMOL/L (3.5-5.1); SODIUM LEVEL 134 MMOL/L (136-145); TOTAL PROTEIN 6.9 G/DL (5.7-8.2)
[2023-08-24 14:36] LABS: THYROID STIMULATING HORMONE 1.865 uIU/ML (0.55-4.78); THYROXINE (T4) 7.9 UG/DL (4.5-10.9)
[2023-08-24 15:00] LABS: MAGNESIUM LEVEL 2.1 MG/DL (1.8-2.4)
[2023-08-24 17:07] LABS: CK-MB VALUE MASS 5.7 NG/ML (<3.6)
[2023-08-24 17:10] LABS: MB/CK RELATIVE INDEX 0.92 (< OR =4)
[2023-08-24] MEDS ORDERED: VENTAER INH (17:23)
[2023-08-24] MEDS ORDERED: DEXA6TAB PO (17:23)
[2023-08-24] MEDS ORDERED: AMOX875T2 PO (17:23)
[2023-08-24 17:37] VITALS: BP 124/62; TEMP 97.5; O2SAT 96
== END 2023-08-24 17:38 | disposition home or self-care (01) ==
LOC: M ED 13:19
DX: U07.1 COVID-19 (principal); J18.1 Lobar pneumonia, unspecified organism; J44.1 Chronic obstructive pulmonary disease with (acute) exacerbation; F17.200 Nicotine dependence, unspecified, uncomplicated; Z88.3 Allergy status to other anti-infective agents
CPT/HCPCS: 71046; 80047; 80048; 80076; 82550; 82553; 83605; 83735; 83880; 84436; 84443; 84484; 85025; 87040; 87486; 87581; 87633; 87798; 93005; 94640; 96374; 99284; J1100

== ENCOUNTER 2023-10-21 18:33 | Emergency (ER) | payer MEDICARE ==
[~2023-10-21] VITALS: Ht 167.6 cm; Wt 82.6 kg
[~2023-10-21 18:33] MED LIST changes: +AMOX875T2 PO; +DEXA6TAB PO; +NIRM1TAB; +VENTAER INH
[2023-10-21 19:34] LABS: BASO % 0.2 % (0.0-1.0); HEMATOCRIT 43.3 % (42.0-52.0); HEMOGLOBIN 14.7 g/dl (13.5-17.5); LYMPH # 0.7 10^3/uL (1.5-5.0); LYMPH % 11.7 % (24.0-44.0); MEAN CORPUSCULAR HEMOGLOBIN 30.6 pg (27.0-33.0); MEAN CORPUSCULAR HGB CONC 33.9 g/dl (32.0-36.5); MEAN CORPUSCULAR VOLUME 90.2 fl (80.0-96.0); MONO # 0.3 10^3/uL (0.0-0.8); MONO % 5.3 % (2.0-8.0); NEUTROPHILS % 82.5 % (36.0-66.0); PLATELET COUNT, AUTOMATED 214 10^3/uL (150-450); WHITE BLOOD COUNT 6.1 10^3/uL (4.0-10.0)
[2023-10-21 19:36] LABS: ABG BASE EXCESS -2.3 (-2.0-2.0); ABG HCO3 19.6 MMOL/L (22.0-26.0); ABG O2 SATURATION 94.5 % (95.0-99.0); ABG PARTIAL PRESSURE CO2 26.8 mmHg (35.0-45.0); ABG STANDARD HCO3 22.5 MMOL/L. (22.0-26.0); ABG TOTAL CO2 20.4 MMOL/L (23.0-31.0); ABG pH (ARTERIAL) 7.481 UNITS (7.350-7.450)
[2023-10-21 20:01] LABS: CPK CREATINE PHOSPHOKINASE 284 U/L (46-171)
[2023-10-21 20:02] LABS: ALBUMIN 3.5 G/DL (3.2-5.2); ALKALINE PHOSPHATASE 65 U/L (46-116); ALT/SGPT 19 U/L (7.0-40); AST/SGOT 26 U/L (<34); BILIRUBIN,DIRECT 0.1 MG/DL (<0.4); BILIRUBIN,TOTAL 0.3 MG/DL (0.3-1.2); BLOOD UREA NITROGEN 15 MG/DL (9-23); CALCIUM LEVEL 7.9 MG/DL (8.3-10.6); CARBON DIOXIDE LEVEL 24 MMOL/L (20-31); CHLORIDE LEVEL 101 MMOL/L (98-107); CREATININE FOR GFR 0.82 MG/DL (0.70-1.30); GLOMERULAR FILTRATION RATE > 60.0 (>49); GLUCOSE, FASTING 107 MG/DL (74-106); MB/CK RELATIVE INDEX 0.35 (< OR =4); POTASSIUM SERUM 3.3 MMOL/L (3.5-5.1); SODIUM LEVEL 132 MMOL/L (136-145); TOTAL PROTEIN 6.3 G/DL (5.7-8.2)
[2023-10-21 20:03] LABS: THYROID STIMULATING HORMONE 1.378 uIU/ML (0.55-4.78); THYROXINE (T4) 7.1 UG/DL (4.5-10.9)
[2023-10-21] MEDS: ACETAMINOPHEN TAB 650MG DOSE (2X325MG) PO ONE (20:03)
[2023-10-21 20:08] LABS: FREE T4 0.88 NG/DL (0.89-1.76)
[2023-10-21 20:13] LABS: PROCALCITONIN 0.04 ng/ml
[2023-10-21] MEDS: NS 1,000 ML IV ONE ×2 (20:40→21:55)
[2023-10-21 20:48] LABS: CK-MB VALUE MASS 1.5 NG/ML (<3.6)
[2023-10-21 20:50] LABS: MB/CK RELATIVE INDEX 0.54 (< OR =4)
[2023-10-21] MEDS: IPRATROPIUM 0.5MG/ALBUTEROL 2.5MG INH SOL UD 3ML (DUONEB) NEB ONE (21:03)
[2023-10-21] MEDS: IBUPROFEN 800 MG TAB PO ONE (21:46)
[2023-10-22 00:09] VITALS: BP 109/72; TEMP 98.8; O2SAT 95
== END 2023-10-22 00:43 | disposition home or self-care (01) ==
LOC: M ED 18:33
DX: J09.X9 Influenza due to identified novel influenza A virus with other manifestations (principal); R50.9 Fever, unspecified; R06.02 Shortness of breath; I25.2 Old myocardial infarction; F17.210 Nicotine dependence, cigarettes, uncomplicated; Z88.8 Allergy status to other drugs, medicaments and biological substances; Z79.51 Long term (current) use of inhaled steroids; Z79.2 Long term (current) use of antibiotics; Z79.899 Other long term (current) drug therapy

== ENCOUNTER → 2023-11-27 | Outpatient (CLI) | payer MEDICARE | LOC: M WUC 10:36 | PROVIDERS: ATTEND Physician Assistant Medical | DX: J98.11 Atelectasis (principal) ==

== ENCOUNTER → 2024-03-14 | Outpatient (REF) | payer MEDICARE ==
[~2024-03-14] MED LIST changes: +DOXY-323 PO; -DOXY-443 PO
== END ==
LOC: M LAB REF 12:05
PROVIDERS: ATTEND Physician Assistant Medical
DX: J44.9 Chronic obstructive pulmonary disease, unspecified (principal); R07.89 Other chest pain; R06.02 Shortness of breath

== ENCOUNTER → 2024-03-20 | Outpatient (CLI) | payer MEDICARE | LOC: M RAD 06:49 | PROVIDERS: ATTEND Physician Assistant Medical | DX: J44.9 Chronic obstructive pulmonary disease, unspecified (principal); R06.02 Shortness of breath; R07.89 Other chest pain | CPT/HCPCS: 71046; 78582; A9540; A9567 ==

== ENCOUNTER → 2024-03-25 | Outpatient (CLI) | payer MEDICARE | LOC: M CARPUL 07:59 | PROVIDERS: ATTEND Physician Assistant Medical | DX: R06.02 Shortness of breath (principal) ==

== ENCOUNTER → 2024-06-27 | Outpatient (CLI) | payer MEDICARE ==
[~2024-06-27] MED LIST changes: -DOXY-323 PO; +DOXY-441 PO
== END ==
LOC: M WUC 11:13
PROVIDERS: ATTEND Physician Assistant Medical
DX: M79.645 Pain in left finger(s) (principal)

== ENCOUNTER → 2024-07-03 | Outpatient (CLI) | payer MEDICARE | LOC: M CARPUL 09:37 | PROVIDERS: ATTEND Physician Assistant Medical | DX: R06.02 Shortness of breath (principal) ==

== ENCOUNTER → 2024-07-10 | Outpatient (CLI) | payer MEDICARE | LOC: M RAD 10:55 | PROVIDERS: ATTEND Physician Assistant Medical | DX: R05.9 Cough, unspecified (principal) ==

== ENCOUNTER → 2024-12-16 | Outpatient (CLI) | payer MEDICARE | LOC: M CARPUL 09:10 | PROVIDERS: ATTEND Physician Assistant | DX: J44.9 Chronic obstructive pulmonary disease, unspecified (principal) ==

== ENCOUNTER 2025-01-12 11:16 | Day surgery (SDC) | payer MEDICARE ==
[~2025-01-12] VITALS: Ht 170.2 cm; Wt 81.8 kg
[~2025-01-12 11:16] MED LIST changes: -FLOM0.4C39 PO; +LR 1,000 ML IV SCH; +TAMS-18 PO
[2025-01-12] MEDS: FLURBIPROFEN 0.03% OPHTH SOLN 2.5 ML OD SCH (12:10)
[2025-01-12] MEDS: TETRACAINE 0.5% OPHTH SOLN 4ML OD SCH (12:10)
[2025-01-12] MEDS: CYCLOPENTOLATE 1% OPHTH SOLN 2ML BTL OD SCH (12:10)
[2025-01-12] MEDS: PHENYLEPHRINE 2.5% OPHTH SOL 2ML OD SCH (12:10)
[2025-01-12] MEDS ORDERED: MIDAZOLAM INJ 2MG/2ML VIAL As Ordered ONE (13:21)
[2025-01-12] MEDS ORDERED: fentaNYL 100 MCG/2 ML INJECTION As Ordered ONE (13:21)
[2025-01-12] MEDS: LIDOCAINE 1% SDV 5ML VIAL As Ordered ONE (13:25)
[2025-01-12] MEDS: CEFUROXIME 1MG/0.1ML INTRACAMERAL INJ As Ordered ONE (13:25)
[2025-01-12 13:42] VITALS: BP 119/55; TEMP 97.4; O2SAT 95
== END 2025-01-12 14:03 | disposition home or self-care (01) ==
LOC: M SDC 11:16
PROVIDERS: ATTEND Ophthalmology
DX: H25.11 Age-related nuclear cataract, right eye (principal); J44.9 Chronic obstructive pulmonary disease, unspecified; Z79.899 Other long term (current) drug therapy; Z79.82 Long term (current) use of aspirin; F17.210 Nicotine dependence, cigarettes, uncomplicated; Z91.041 Radiographic dye allergy status
CPT/HCPCS: 66984; J0697; J2250; J3010; V2632

== ENCOUNTER 2025-03-16 07:44 | Day surgery (SDC) | payer MEDICARE ==
[~2025-03-16] VITALS: Ht 170.2 cm; Wt 82.5 kg
[~2025-03-16 07:44] MED LIST changes: +MIDAZOLAM INJ 2 MG/2 ML VIAL As Ordered ONE
[2025-03-16] MEDS: TETRACAINE 0.5% OPHTH SOLN 4ML OS SCH (09:05)
[2025-03-16] MEDS: CYCLOPENTOLATE 1% OPHTH SOLN 2 ML BTL OS SCH (09:05)
[2025-03-16] MEDS: PHENYLEPHRINE 2.5% OPHTH SOL 2ML OS SCH (09:05)
[2025-03-16] MEDS: FLURBIPROFEN 0.03% OPHTH SOLN 2.5 ML OS SCH (09:05)
[2025-03-16] MEDS: LIDOCAINE 1% SDV 5 ML VIAL As Ordered ONE (10:25)
[2025-03-16] MEDS: CEFUROXIME 1 MG/0.1 ML INTRACAMERAL INJ As Ordered ONE (10:25)
[2025-03-16 10:42] VITALS: BP 147/71; TEMP 98.6; O2SAT 96
== END 2025-03-16 11:09 | disposition home or self-care (01) ==
LOC: M SDC 07:44
PROVIDERS: ATTEND Ophthalmology
DX: H25.12 Age-related nuclear cataract, left eye (principal); Z88.8 Allergy status to other drugs, medicaments and biological substances; Z79.51 Long term (current) use of inhaled steroids; F17.210 Nicotine dependence, cigarettes, uncomplicated; Z98.41 Cataract extraction status, right eye
CPT/HCPCS: 66984; J0697; J2250; J3010; V2632

== ENCOUNTER → 2025-07-29 | Outpatient (CLI) | payer MEDICARE ==
[~2025-07-29] MED LIST changes: -LR 1,000 ML IV SCH; -MIDAZOLAM INJ 2 MG/2 ML VIAL As Ordered ONE
== END ==
LOC: M RAD 06:24
PROVIDERS: ATTEND Physician Assistant
DX: Z87.891 Personal history of nicotine dependence (principal)